=== PATIENT | male | born 2000 | race Caucasian/White ===

== ENCOUNTER 2022-06-04 20:39 | Emergency (ER) | payer BC ==
[2022-06-04] MEDS ORDERED: NITROGLYCERIN 0.4 MG SL TABS BTL 25'S SL ONE (21:15)
--- NOTE | 2022-06-04 21:21 | ED General ---
General Chief Complaint: Foreign Body Stated Complaint: FOOD STUCK IN THROAT Nursing Triage Note: PT ARRIVAL TO ER WITH COMPLAINT OF FOOD BOLUS. PATIENT WAS EATING SOUP WITH CHUNKS OF CHICKEN IN IT AND CHOKED. PT IS USUALLY ABLE TO SELF CORRECT. BEEN LODGED SINCE 2009 HRS. PATIENT IS ABLE TO SPEAK IN COMPLETE SENTENCES AND DENIES SOA. (WILLIAM BETTENCOURT APRN) History of Present Illness Date Seen by Provider: Jun 04, 2022 Time Seen by Provider: 20:55 Initial Comments Patient is a 22 yo M who presents to the ED with an esophageal food bolus. He states he ate a large piece of chicken from some chicken soup he was eating when he felt the food lodge in his throat. He denies any difficulty breathing. States he has been unable to swallow anything since that time without regurgitation. He has had issues like this in the past but has always been able to get the food to pass. He states he has never undergone an EGD. Timing/Duration: 1 Hour (WILLIAM BETTENCOURT APRN) Allergies and Home Medications Allergies Coded Allergies: No Known Drug Allergies (Unverified , 06/04/22) Patient Home Medication List Home Medication List Reviewed: Yes (WILLIAM BETTENCOURT APRN) Review of Systems Review of Systems Constitutional: no symptoms reported EENTM: no symptoms reported Respiratory: no symptoms reported Cardiovascular: no symptoms reported Gastrointestinal: dysphagia (WILLIAM BETTENCOURT APRN) Past Uuuzqce-Vsmsnb-Efosvz Hx Patient Social History Tobacco Use?: No Use of E-Cig and/or Vaping dev: No Substance use?: Yes Substance type: Marijuana, Other Additional substance use comme: THC GUMMIES Substance frequency: Couple times a week Alcohol Use?: No Pt feels they are or have been: No (WILLIAM BETTENCOURT APRN) Immunizations Up To Date Influenza Vaccine Up-to-Date: Yes; Up-to-Date Second COVID19 Vaccination Yury: 03/22 (WILLIAM BETTENCOURT APRN) Physical Exam Vital Signs Vital Signs - First Documented 06/04/22 20:45 Temp 36.2 Pulse 104 Resp 18 B/P (MAP) 160/83 (108) Pulse Ox 99 O2 Delivery Room Air (HAMILTON,JATINDER K DO) Vital Signs Capillary Refill : Less Than 3 Seconds (WILLIAM BETTENCOURT APRN) Height, Weight, BMI Height: '" Weight: lbs. oz. kg; BMI Method: General Appearance: No Apparent Distress, WD/WN HEENT: PERRL/EOMI, TMs Normal Neck: Full Range of Motion, Normal Inspection, Non Tender, Supple Respiratory: Chest Non Tender, Lungs Clear, Normal Breath Sounds, No Accessory Muscle Use, No Respiratory Distress Cardiovascular: Regular Rate, Rhythm, Normal Peripheral Pulses Gastrointestinal: Non Tender, Soft (WILLIAM BETTENCOURT APRN) Progress/Results/Core Measures Suspected Sepsis SIRS Temperature: Pulse: 104 Respiratory Rate: 18 Blood Pressure 160 /83 Mean: 108 (WILLIAM BETTENCOURT APRN) Results/Orders Vital Signs/I&O 06/04/22 06/04/22 20:45 21:29 Temp 36.2 Pulse 104 93 Resp 18 18 B/P (MAP) 160/83 (108) 125/75 Pulse Ox 99 95 O2 Delivery Room Air Room Air (JATINDER VILLASENOR DO) Vital Signs/I&O Capillary Refill : Less Than 3 Seconds (WILLIAM BETTENCOURT APRN) Blood Pressure Mean: 108 Progress Note : Progress Note Patient is nontoxic and well hydrated on exam. Pt is speaking in full sentences without any stridor or other respiratory distress. No adventitious lung sounds on auscultation. Pt is resting comfortably. Patient was given a SL nitroglycerin and drank a warm soda. He has spontaneous passage of the food bolus and was able to tolerate the entirety of the soda without issue. Will d/c home with recs for supportive care and follow-up with surgery for likely EGD given this has been a recurring issue. Return precautions for urgent symptomology discussed. Patient verbalized understanding. (WILLIAM BETTENCOURT APRN) Departure Impression Primary Impression: Food impaction of esophagus Qualified Codes: T18.128A - Food in esophagus causing other injury, initial encounter Disposition: HOME, SELF-CARE Condition: Improved Departure-Patient Inst. Decision time for Depature: 21:15 (WILLIAM BETTENCOURT APRN) Referrals: NO,LOCAL PHYSICIAN (PCP) Primary Care Physician YAMIL KIM MD Patient Instructions: Food Obstruction ATTENDING PHYSICIAN NOTE: I WAS PHYSICALLY PRESENT ER PHYSICIAN, BUT I WAS NOT INVOLVED IN ANY DECISION MAKING OR ANY CARE OF THIS PATIENT, AND I AM NOT COLLABORATING PHYSICIAN. (JATINDER VILLASENOR DO) WILLIAM BETTENCOURT APRN Jun 04, 2022 21:21 JATINDER VILLASENOR DO Jun 07, 2022 18:11
[2022-06-04 21:29] VITALS: BP 125/75
== END 2022-06-04 21:29 | disposition home or self-care (01) ==
LOC: ER 20:42
DX: T18.128A Food in esophagus causing other injury, initial encounter (principal); W45.8XXA Other foreign body or object entering through skin, initial encounter
CPT/HCPCS: 99283